=== PATIENT | male | born 1995 | race Asian ===

== ENCOUNTER 2025-05-27 16:56 | Emergency (ER) | payer OTHER ==
[~2025-05-27] VITALS: Ht 170.2 cm; Wt 65.0 kg
[2025-05-27 17:04] VITALS: BP 128/90; PULSE 122; RESP 18; TEMP 37; O2SAT 99
[2025-05-27] MEDS ORDERED: TETANUS, DIPHTHERIA, PERTUSSIS VAC/PF 0.5ML (>10YR OLD) IM ONE (17:30)
[2025-05-27] MEDS: LIDOCAINE HCL 1% 20ML VIAL INFIL ONE (17:30)
[2025-05-27] MEDS ORDERED: BO1 TP (19:58)
[2025-05-27] MEDS: KETOROLAC 30MG/ML VIAL IM ONE (20:00)
[2025-05-27] MEDS: TETANUS, DIPHTHERIA, PERTUSSIS VAC/PF 0.5ML (>10YR OLD) IM ONE (20:15)
== END 2025-05-27 20:35 | disposition home or self-care (01) ==
LOC: EDBD 16:56 → ER 16:56
DX: S01.111A Laceration without foreign body of right eyelid and periocular area, initial encounter (principal); Y09 Assault by unspecified means; Y93.89 Activity, other specified; Y92.89 Other specified places as the place of occurrence of the external cause; Y99.8 Other external cause status
CPT/HCPCS: 70450; 70486; 90715; 12011; 90471; 96372; 99285; J1885; Z7610